=== PATIENT | female | born 1930 | race Caucasian/White ===

== ENCOUNTER 2021-08-08 09:51 | Inpatient (IN) | payer MEDICARE ==
[2021-08-08] MEDS ORDERED: Diltiazem 125 MG/25 ML ONE (10:29)
[2021-08-08 10:44] LABS: #Lymphocytes 0.8 thou/uL (1.20-3.40); #Neutrophils 9.6 thou/uL (1.40-6.50); %Basophils 0.1 % (0.0-1.0); %Eosinophils 0.1 % (0.0-10.0); %Lymphocytes 7.3 % (21.0-51.0); %Monocytes 8.7 % (0.0-10.0); %Neutrophils 83.8 % (42.0-75.0); Hemoglobin 13.3 g/dL (12.0-16.0); Mean Corpuscular HGB CONC 30.4 g/dL (32.0-36.0); Mean Corpuscular Hemoglobin 28.1 pg (27.0-31.0); Mean Corpuscular Volume 92.5 fL (78.0-98.0); Platelet Count 486 thou/uL (130-400); RBC Distribution Width 17.1 % (11.5-14.5); Red Blood Cell (RBC) Count 4.72 mill/uL (4.20-5.40); White Blood Cell (WBC) Count 11.4 thou/uL (4.8-10.8)
[2021-08-08] MEDS ORDERED: Diltiazem HCl 125 MG, Admixture Fee 1 EACH in Sodium Chloride 0.9% 100 ML IVPB SCH (10:45)
[2021-08-08 10:52] LABS: INR-International Normal Ratio 1.1; PTT 23.5 sec (22.9-36.1); Prothrombin Time 14.7 sec (12.0-14.7)
[2021-08-08 10:54] LABS: ALT (SGPT) 71 U/L (8-55); AST (SGOT) 40 U/L (5-34); Albumin 3.9 g/dL (3.4-4.8); Alkaline Phosphatase 108 U/L (40-110); Anion Gap 15 mmol/L (10-20); BUN (Urea Nitrogen) 21 mg/dL (9.8-20.1); Bilirubin, Total 0.7 mg/dL (0.2-1.2); Calc. Creatinine Clearance 0 mL/min (70-130); Calcium 9.5 mg/dL (7.8-10.44); Carbon Dioxide 31 mmol/L (23-31); Chloride 91 mmol/L (98-107); Globulin 4.2 g/dL (2.4-3.5); Glucose 171 mg/dL (83-110); Potassium 3.8 mmol/L (3.5-5.1); Protein, Total 8.1 g/dL (5.8-8.1); Sodium 133 mmol/L (136-145)
[2021-08-08 10:59] LABS: Band 3 % (5-11); Hypersemented Neutrophil SLIGHT; Lymphocytes 7 % (21-51); MDiff Complete? YES; Monocytes 9 % (0-10); Neutrophil 81 % (42-75); Platelet Morphology Comment Appears Increased; Polychromasia SLIGHT = 2-3 cells (100X) (0-2/hpf); Vacuoles SLIGHT
[2021-08-08 11:48] LABS: Bacteria/HPF None Seen HPF (None Seen); Bilirubin Negative (Negative); Blood, Urine Negative (Negative); Clarity Clear (Clear); Glucose, Urine (Dipstick) Normal (Negative); Ketone, Urine Negative (Negative); Leukocyte Negative Leu/uL (Negative); Nitrite Negative (Negative); Protein, Urine (Dipstick) 100 mg/dL (Neg-Trace); RBC/HPF 0-3 HPF (0-3); Specific Gravity, Urine 1.024 (1.002-1.036); Squamous Epithelial None Seen HPF (0-3); Urobilinogen Normal mg/dL (Less than 2); WBC/HPF 0-3 HPF (0-3)
[2021-08-08 13:16] LABS: Lactic Acid 1.9 mmol/L (0.5-2.2)
[2021-08-08] MEDS ORDERED: Furosemide 20 MG/2 ML VIAL ONE (13:16)
[2021-08-08 14:59] LABS: Troponin I 0.015 ng/mL (< 0.028)
[2021-08-08 15:24] LABS: SARS-CoV-2 NAA Rapid Test Not Detected (NotDetected)
[2021-08-08 17:17] LABS: Troponin I 0.012 ng/mL (< 0.028)
[2021-08-08] MEDS ORDERED: Mometasone 200 MCG/Formoterol 5 MCG 120 PUFF INHALER INH SCH (20:15)
[2021-08-08] MEDS: Furosemide 40 MG/4 ML VIAL SLOW IVP SCH (20:33)
[2021-08-08] MEDS: Heparin 5,000 UNITS/ML VIAL SC SCH (20:33)
[2021-08-08] MEDS: Montelukast Sodium 10 mg Tablet PO SCH (21:11)
[2021-08-08] MEDS: busPIRone HCl 10 MG TAB PO SCH (21:11)
[2021-08-09 04:35] LABS: #Basophils 0.1 thou/uL (0.0-0.2); #Lymphocytes 0.5 thou/uL (1.20-3.40); #Monocytes 1.4 thou/uL (0.11-0.59); %Basophils 0.5 % (0.0-1.0); %Lymphocytes 3.7 % (21.0-51.0); %Monocytes 10.3 % (0.0-10.0); %Neutrophils 85.4 % (42.0-75.0); Hemoglobin 12.1 g/dL (12.0-16.0); Mean Corpuscular HGB CONC 29.5 g/dL (32.0-36.0); Mean Corpuscular Hemoglobin 27.3 pg (27.0-31.0); Mean Corpuscular Volume 92.5 fL (78.0-98.0); Platelet Count 414 thou/uL (130-400); Red Blood Cell (RBC) Count 4.43 mill/uL (4.20-5.40)
[2021-08-09 04:54] LABS: Anion Gap 15 mmol/L (10-20); BUN (Urea Nitrogen) 26 mg/dL (9.8-20.1); Calc. Creatinine Clearance 26 mL/min (70-130); Calcium 8.9 mg/dL (7.8-10.44); Carbon Dioxide 32 mmol/L (23-31); Chloride 91 mmol/L (98-107); Glucose 92 mg/dL (83-110); Potassium 3.3 mmol/L (3.5-5.1); Sodium 135 mmol/L (136-145)
[2021-08-09] MEDS: Mometasone 200 MCG/Formoterol 5 MCG 120 PUFF INHALER INH SCH ×2 (07:27→19:05)
[2021-08-09] MEDS: Heparin 5,000 UNITS/ML VIAL SC SCH ×3 (09:46→20:04)
[2021-08-09] MEDS: Furosemide 40 MG/4 ML VIAL SLOW IVP SCH ×2 (09:46→20:04)
[2021-08-09] MEDS: busPIRone HCl 10 MG TAB PO SCH ×2 (11:49→20:05)
[2021-08-09] MEDS ORDERED: Polyethylene Glycol OPTH DROP 15 ML BOT EA EYE PRN (11:58)
[2021-08-09] MEDS ORDERED: Potassium Chloride 20 MEQ TAB PO SCH (13:30)
[2021-08-09] MEDS: Potassium Chloride 20 MEQ TAB PO SCH (18:33)
[2021-08-09] MEDS: traZODone HCl 50 MG TAB PO SCH (20:05)
[2021-08-09] MEDS: Montelukast Sodium 10 mg Tablet PO SCH (20:05)
[2021-08-10 04:50] LABS: BUN (Urea Nitrogen) 30 mg/dL (9.8-20.1); Calc. Creatinine Clearance 24 mL/min (70-130); Calcium 8.9 mg/dL (7.8-10.44); Glucose 105 mg/dL (83-110)
[2021-08-10 04:55] LABS: Hemoglobin 12.1 g/dL (12.0-16.0); Mean Corpuscular HGB CONC 30.5 g/dL (32.0-36.0); Mean Corpuscular Hemoglobin 28.8 pg (27.0-31.0); Mean Corpuscular Volume 94.6 fL (78.0-98.0); Mean Platelet Volume 8.1 fL (7.4-10.4); Platelet Count 460 thou/uL (130-400); RBC Distribution Width 16.6 % (11.5-14.5); Red Blood Cell (RBC) Count 4.19 mill/uL (4.20-5.40)
[2021-08-10 04:59] LABS: Anion Gap 19 mmol/L (10-20); Carbon Dioxide 32 mmol/L (23-31); Chloride 91 mmol/L (98-107); Potassium 3.2 mmol/L (3.5-5.1); Sodium 139 mmol/L (136-145)
[2021-08-10 05:18] LABS: Band 4 % (5-11); Lymphocytes 3 % (21-51); MDiff Complete? YES; Metamyelocyte 1 % (0-0); Monocytes 10 % (0-10); Neutrophil 82 % (42-75)
[2021-08-10] MEDS: Mometasone 200 MCG/Formoterol 5 MCG 120 PUFF INHALER INH SCH ×2 (08:09→18:43)
[2021-08-10] MEDS ORDERED: Digoxin 0.5 MG/2 ML AMP SLOW IVP SCH ×3 (08:45→21:00)
[2021-08-10 08:57] VITALS: BMI 16.8
[2021-08-10] MEDS ORDERED: Metoprolol Tartrate 50 MG TAB PO SCH (09:00)
[2021-08-10] MEDS: Lisinopril/Hydrochlorothiazide 20 mg/12.5 mg Tablet PO SCH (09:12)
[2021-08-10] MEDS: Apixaban 2.5 MG TAB PO SCH ×2 (09:12→22:08)
[2021-08-10] MEDS: busPIRone HCl 10 MG TAB PO SCH ×2 (09:12→22:08)
[2021-08-10] MEDS: Furosemide 40 MG/4 ML VIAL SLOW IVP SCH ×2 (09:13→22:09)
[2021-08-10] MEDS: Potassium Chloride 20 MEQ TAB PO SCH ×2 (09:13→17:13)
[2021-08-10] MEDS: Montelukast Sodium 10 mg Tablet PO SCH (22:08)
[2021-08-10] MEDS: traZODone HCl 50 MG TAB PO SCH (22:08)
[2021-08-10] MEDS ORDERED: Ondansetron ODT 4 MG TAB SL SCH (22:45)
[2021-08-11 05:10] LABS: BUN (Urea Nitrogen) 34 mg/dL (9.8-20.1); Calc. Creatinine Clearance 23 mL/min (70-130); Glucose 157 mg/dL (83-110)
[2021-08-11 05:20] LABS: Anion Gap 16 mmol/L (10-20); Carbon Dioxide 36 mmol/L (23-31); Chloride 95 mmol/L (98-107); Sodium 143 mmol/L (136-145)
[2021-08-11 05:47] LABS: Anisocytosis SLIGHT = 6-15 cells (100X) (0-5/hpf); Band 6 % (5-11); Hemoglobin 12.1 g/dL (12.0-16.0); Lymphocytes 2 % (21-51); MDiff Complete? YES; Mean Corpuscular HGB CONC 28.2 g/dL (32.0-36.0); Mean Corpuscular Hemoglobin 27.5 pg (27.0-31.0); Mean Corpuscular Volume 97.3 fL (78.0-98.0); Mean Platelet Volume 8.1 fL (7.4-10.4); Monocytes 8 % (0-10); Neutrophil 84 % (42-75); Platelet Count 391 thou/uL (130-400); RBC Distribution Width 16.7 % (11.5-14.5); Red Blood Cell (RBC) Count 4.39 mill/uL (4.20-5.40); White Blood Cell (WBC) Count 11.1 thou/uL (4.8-10.8)
[2021-08-11] MEDS: Mometasone 200 MCG/Formoterol 5 MCG 120 PUFF INHALER INH SCH ×2 (06:37→19:05)
[2021-08-11] MEDS: Potassium Chloride 20 MEQ TAB PO SCH ×2 (08:00→17:43)
[2021-08-11] MEDS: busPIRone HCl 10 MG TAB PO SCH ×2 (09:00→20:21)
[2021-08-11] MEDS: Apixaban 2.5 MG TAB PO SCH ×2 (09:00→20:21)
[2021-08-11] MEDS: Lisinopril/Hydrochlorothiazide 20 mg/12.5 mg Tablet PO SCH (09:00)
[2021-08-11] MEDS: Digoxin 0.125 MG TAB PO SCH (09:00)
[2021-08-11] MEDS: Furosemide 40 MG/4 ML VIAL SLOW IVP SCH ×2 (10:21→20:13)
[2021-08-11] MEDS ORDERED: BIOTENE MOUTH SPRAY 44.3 ML PO PRN (12:43)
[2021-08-11] MEDS: Montelukast Sodium 10 mg Tablet PO SCH (20:21)
[2021-08-11] MEDS: traZODone HCl 50 MG TAB PO SCH (20:23)
[2021-08-12] MEDS: Mometasone 200 MCG/Formoterol 5 MCG 120 PUFF INHALER INH SCH ×2 (07:08→18:21)
[2021-08-12] MEDS: busPIRone HCl 10 MG TAB PO SCH ×2 (09:03→21:09)
[2021-08-12] MEDS: Apixaban 2.5 MG TAB PO SCH (09:03)
[2021-08-12] MEDS: Digoxin 0.125 MG TAB PO SCH (09:03)
[2021-08-12] MEDS: Potassium Chloride 20 MEQ TAB PO SCH ×2 (09:04→16:36)
[2021-08-12] MEDS: Furosemide 40 MG/4 ML VIAL SLOW IVP SCH (09:04)
[2021-08-12] MEDS: Lisinopril/Hydrochlorothiazide 20 mg/12.5 mg Tablet PO SCH (09:05)
[2021-08-12] MEDS ORDERED: Lorazepam 2 MG/ML VIAL SLOW IVP PRN (10:04)
[2021-08-12] MEDS: traZODone HCl 50 MG TAB PO SCH (21:09)
[2021-08-12] MEDS: Montelukast Sodium 10 mg Tablet PO SCH (21:09)
[2021-08-12] MEDS: Lorazepam 2 MG/ML VIAL SLOW IVP PRN (21:10)
[2021-08-13] MEDS: Mometasone 200 MCG/Formoterol 5 MCG 120 PUFF INHALER INH SCH (06:58)
[2021-08-13] MEDS: Lorazepam 2 MG/ML VIAL SLOW IVP PRN ×3 (08:09→13:57)
[2021-08-13] MEDS: Potassium Chloride 20 MEQ TAB PO SCH ×2 (09:19→14:49)
[2021-08-13] MEDS: busPIRone HCl 10 MG TAB PO SCH (09:19)
[2021-08-13] MEDS: Digoxin 0.125 MG TAB PO SCH (09:20)
[2021-08-13] MEDS: Lisinopril/Hydrochlorothiazide 20 mg/12.5 mg Tablet PO SCH (09:20)
[2021-08-13] MEDS ORDERED: Metoprolol Tartrate 5 MG/5 ML VIAL IVP PRN (09:22)
[2021-08-13 09:59] VITALS: TEMP 97.3
[2021-08-13] MEDS: Morphine 4 MG/ML VIAL SLOW IVP PRN ×2 (10:02→15:24)
[2021-08-13 15:23] VITALS: BP 99/50
== END 2021-08-13 15:41 | disposition hospice, inpatient (51) | DRG 291 ==
LOC: ERS 09:51 → ERHOLD 13:57 → 2NO 15:56
PROVIDERS: ADMIT Internal Medicine; ATTEND Internal Medicine
DX: I11.0 Hypertensive heart disease with heart failure (principal); I50.33 Acute on chronic diastolic (congestive) heart failure; E43 Unspecified severe protein-calorie malnutrition; Z68.1 Body mass index [BMI] 19.9 or less, adult; I48.19 Other persistent atrial fibrillation; Z66 Do not resuscitate; Z51.5 Encounter for palliative care; J45.909 Unspecified asthma, uncomplicated; F41.9 Anxiety disorder, unspecified; F32.A Depression, unspecified; I25.10 Atherosclerotic heart disease of native coronary artery without angina pectoris; Z20.822 Contact with and (suspected) exposure to COVID-19; R63.4 Abnormal weight loss; I48.0 Paroxysmal atrial fibrillation; I35.0 Nonrheumatic aortic (valve) stenosis; I07.1 Rheumatic tricuspid insufficiency; Z95.1 Presence of aortocoronary bypass graft; Z88.1 Allergy status to other antibiotic agents; Z88.2 Allergy status to sulfonamides; Z88.8 Allergy status to other drugs, medicaments and biological substances; Z79.51 Long term (current) use of inhaled steroids; Z79.899 Other long term (current) drug therapy; Z79.82 Long term (current) use of aspirin; Z79.01 Long term (current) use of anticoagulants
CPT/HCPCS: 36415; 36416; 71045; 80048; 80053; 81003; 81015; 83605; 83880; 84484; 85025; 85610; 85730; 87040; 87086; 93005; 93010; 93306; 94760; 96365; 96366; 96375; J1160; J1644; J1940; J2060; J2270; J3490; Q0162